=== PATIENT | female | born 1975 | race Two or more races ===

== ENCOUNTER 2017-05-14 06:41 | Emergency (ER) | payer OTHER ==
[2017-05-14 06:46] VITALS: BP 126/75; PULSE 77; RESP 18; TEMP 98.8; O2SAT 99
[2017-05-14] MEDS ORDERED: FLUORESCEIN SODIUM 1 MG STRIP OP ONE (07:01)
--- NOTE | 2017-05-14 07:11 | EDPHY ---
H & P Time Seen by Provider: 05/14/17 06:56 HPI/ROS: HPI Right eye injury. 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 She complains of right eye irritation. She complains of some tearing to the right eye. She denies any significant changes in vision. She describes her irritation as a burning sensation. No other injury or complaint. She does not wear contact lenses. ROS: Constitutional: No fever, no chills. No weakness. Eyes: No discharge. As above. Neurological: No headache. Past medical history: No significant past medical history. Social history: Nonsmoker. She is here by herself. No alcohol. She works in preop for the hospital. Physical Exam: General Appearance: Alert, no distress. This patient is responding to questions appropriately and in full sentences. This patient appears well- hydrated and well-nourished. Eyes: Visual acuities, bilateral 20/30, left 20/40, right 20/50, without correction. Pupils equal and round at 3-2 mm bilaterally, the left eye soft tissue structures cornea and sclera appear normal on gross inspection. The right eye she has some mild conjunctival hemorrhage lateral aspect to the limbus. Right eye slit-lamp exam: Orozco lamp exam with fluorescein staining; no Marcie's sign, evidence of abrasion, ulceration or other abnormality. Slit- lamp exam; no hypopyon, no hyphema, anterior chamber is deep and clear, no cell/ flare. The upper and lower lids were everted with no gross evidence of foreign body. Neurological: Motor sensory function is grossly intact. Cranial nerves are normal. Gait is normal. Skin: Warm and dry, no rashes. Musculoskeletal: Neck is supple and nontender. Extremities are symmetrical. All joints range without pain or impingement. Psychiatric: No agitation. No depression. Database: EKG: Imaging: Procedures: Emergency department course: Vital signs reviewed and are unremarkable. After my examination, I explained that the patient she could go back to work she felt comfortable doing this. I will have her follow up with Dr. Crum or 1 of his partners with our ophthalmology group located on the hospital campus. She is in agreement with this plan. She will call later today for appointment tomorrow morning. This is a workman's Comp case. Return to emergency department precautions were reviewed with her. All of her questions were answered. She feels comfortable being discharged. She was discharged in good condition. Differential Diagnosis: The differential diagnosis on this patient includes but is not limited to blunt trauma to right eye, subconjunctival hemorrhage. Traumatic iritis, corneal abrasion, corneal ulceration, ocular foreign body unlikely. This represents a partial list of diagnoses considered. These considerations are based on history , physical exam, past history, reassessment and diagnostic testing. Smoking Status: Never smoked Constitutional: Initial Vital Signs Temperature (C) 37.1 C 05/14/17 06:44 Heart Rate 77 05/14/17 06:44 Respiratory Rate 18 05/14/17 06:44 Blood Pressure 126/75 H 05/14/17 06:44 O2 Sat (%) 99 05/14/17 06:44 O2 Delivery Mode Room Air Allergies/Adverse Reactions: acetaminophen [From Vicodin] Allergy (Verified 05/14/17 06:46) hydrocodone [From Vicodin] Allergy (Verified 05/14/17 06:46) Home Medications: Medication Instructions Recorded NK [No Known Home Meds] 05/14/17 Departure - Departure Disposition: Home, Routine, Self-Care Clinical Impression: Blunt trauma of eye, Subconjunctival hemorrhage Condition: Good Instructions: Subconjunctival Hemorrhage (ED) Additional Instructions: Read and follow provided instructions. Follow-up with Ophthalmology, Dr. Crum, or 1 of his partners tomorrow morning for re-evaluation. Call their office today for appointment. Explain this is for an emergency department follow-up. Return to the emergency department for worsening pain, headache, changes in vision or other serious concerns. Referrals: Jonel Crum MD [Medical Doctor] - As per Instructions
== END 2017-05-14 07:29 | disposition home or self-care (01) ==
DX: S05.91XA Unspecified injury of right eye and orbit, initial encounter (principal); H11.31 Conjunctival hemorrhage, right eye; X58.XXXA Exposure to other specified factors, initial encounter